=== PATIENT | female | born 1985 | race Two or more races ===

== ENCOUNTER 2025-08-21 18:38 | Emergency (ER) | payer BC, OTHER ==
[~2025-08-21] VITALS: Ht 167.6 cm; Wt 84.6 kg
[2025-08-21 19:42] LABS: Hematocrit 41.4 % (36.0-46.0); Hemoglobin 14.1 g/dL (12.2-16.2); Mean Corpuscular Hemoglobin 29.8 pg (28.0-32.0); Mean Corpuscular Volume 87.6 fL (80.0-100.0); Nucleated Red Blood Cells % 0.0 %
[2025-08-21] MEDS: SODIUM CHLORIDE 0.9% 1,000 ML IV ONE (20:00)
[2025-08-21 20:01] LABS: Alanine Aminotransferase 15 U/L (7-40); Albumin 4.7 g/dL (3.2-4.8); Alkaline Phosphatase 80 U/L (46-116); Anion Gap 13 (5-15); BUN/Creatinine Ratio 11.9 (10.0-20.0); Bilirubin, Total 0.5 mg/dL (0.2-1.0); Calcium 9.4 mg/dL (8.7-10.4); Carbon Dioxide 20 mmol/L (20-31); Chloride 107 mmol/L (98-107); Lipase 31 U/L (12-53); Sodium 140 mmol/L (136-145); Total Protein 7.9 g/dL (5.7-8.2)
[2025-08-21 20:02] LABS: Blood Urea Nitrogen 8 mg/dL (9-23); Glucose 119 mg/dL (74-106); Potassium 3.2 mmol/L (3.5-5.1)
--- NOTE | 2025-08-21 20:14 | ED.PDOC ---
History of Present Illness HPI Comments 40-year-old, obese female presents with chief complaint of nonradiating lower abdominal pain, left greater than right. Patient reports pain started out as mild soreness following initial, unprovoked and atraumatic onset on 08/19/2025. Today, while at work, pain was stated to have, suddenly, gotten worse. She endorses on having associated nausea, vomiting, fever, and tremors and was referred to ED after being evaluated at [facility] urgent care facility, earlier, this evening. Patient was given Zofran, Toradol, and Solu- Medrol at said facility prior to arrival. Pertinent history of chronic gastrointestinal issues, current hiatal hernia, and hypertension and family history of endometriosis and ruptured ovarian cysts. Patient also mentions on doubling her hypertension medication dosage under advise following previous, separate urgent care visit for flu-like symptoms in May 2025. She denies any bloody or bilious vomitus, diarrhea, urinary problems, or further acute symptoms. Chief Complaint: Abdominal Pain Time Seen by MD: 19:25 Reviewed Notes: Nurses Notes, Medications, Allergies Allergies: Coded Allergies: Sulfa Antibiotics (Verified Allergy, Unknown, 08/21/25) Information Source: Patient Mode of Arrival: Ambulatory Severity: Moderate Timing: Days Duration: Since onset Prehospital treatment: Other (see HPI) Past Medical History PAST MEDICAL HISTORY: HTN Past Medical History (Other): hernia chronic gastrointestinal issues Surgical History: Denies all surgeries MARKETING SUPPORT ASSISTANT History: Denies all MARKETING SUPPORT ASSISTANT Hx Family History Family History (Other): endometriosis ruptured ovarian cysts Social History Smoker: Non-Smoker Alcohol: Denies ETOH Use Drugs: Denies Drug Use Lives In: Home All Other Systems: Reviewed and Negative (Comprehensive review of systems are negative unless otherwise stated in HPI) Physical Exam General Appearance: No Apparent Distress, Obese HEENT: Normal ENT Inspection, Pharynx Normal, TMs Normal Neck: Full Range of Motion, Non-Tender, Normal, Normal Inspection Respiratory: Chest Non-Tender, Lungs Clear, No Accessory Muscle Use, No Respiratory Distress, Normal Breath Sounds Cardiovascular: No Edema, No JVD, No Murmur, No Gallop, Normal Peripheral Pulses, Regular Rate/Rhythm Breast Exam: Deferred Gastrointestinal: Diffuse (Diffuse tenderness to lower abdomen), LLQ (Tenderness), No Organomegaly, No Pulsatile Mass, Normal Bowel Sounds, RLQ (Tenderness), Soft, Suprapubic (Tenderness), Tenderness (Diffuse tenderness to lower abdomen) Genitalia: Deferred Pelvic: Deferred Rectal: Deferred Extremities: No calf tenderness, Normal capillary refill, Normal inspection, Normal range of motion, Non-tender, No pedal edema Musculoskeletal : Apperance: Normal Neurologic: Alert, access manager II-XII nml as Tested, No Motor Deficits, Normal Affect, Normal Mood, No Sensory Deficits Cerebellar Function: Normal Reflexes: Normal Skin: Dry, Normal Color, Warm Lymphatic: No Adenopathy Was a procedure done? Was a procedure done?: No Differential Dx Considerations may include: Ovarian cyst, ovarian torsion, appendicitis, PID, UTI, gastritis, kidney stone, colitis, diverticulitis, among others X-Ray, Labs, Meds, VS Vital Signs Date Time Temp Pulse Resp B/P (MAP) Pulse Ox O2 Delivery O2 Flow Rate FiO2 08/21/25 21:14 134/94 (107) 08/21/25 19:47 98.9 112 20 177/112 (133) 95 98.9 08/21/25 18:44 98.9 115 18 164/118 95 98.9 Lab Test 08/21/25 20:18 08/21/25 19:29 Range/Units Troponin I High Sensitivity < 3 L < 3 L </=34 ng/L White Blood Count 18.2 H 4.4-10.8 10^3/uL Red Blood Count 4.73 4.0-5.20 10^6/uL Hemoglobin 14.1 12.2-16.2 g/dL Hematocrit 41.4 36.0-46.0 % Mean Corpuscular Volume 87.6 80.0-100.0 fL Mean Corpuscular Hemoglobin 29.8 28.0-32.0 pg Mean Corpuscular Hemoglobin Concent 34.0 32.0-36.0 g/dL Red Cell Distribution Width 14.0 11.8-14.3 % Platelet Count 293 140-450 10^3/uL Mean Platelet Volume 7.7 6.9-10.8 fL Neutrophils (%) (Auto) 96.7 H 37.0-80.0 % Lymphocytes (%) (Auto) 1.7 L 10.0-50.0 % Monocytes (%) (Auto) 1.6 0.0-12.0 % Eosinophils (%) (Auto) 0.0 0.0-7.0 % Basophils (%) (Auto) 0.0 0.0-2.0 % Neutrophils # (Auto) 17.6 H 1.6-8.6 10 ^3/uL Lymphocytes # (Auto) 0.3 L 0.4-5.4 10 ^3/uL Monocytes # (Auto) 0.3 0-1.3 10 ^3/uL Eosinophils # (Auto) 0 0-0.8 10 ^3/uL Basophils # (Auto) 0 0-0.2 10 ^3/uL Nucleated Red Blood Cells 0.0 % Sodium Level 140 136-145 mmol/L Potassium Level 3.2 L 3.5-5.1 mmol/L Chloride Level 107 98-107 mmol/L Carbon Dioxide Level 20 20-31 mmol/L Anion Gap 13 5-15 Blood Urea Nitrogen 8 L 9-23 mg/dL Creatinine 0.67 0.550-1.02 mg/dL Glomerular Filtration Rate Calc 113 >90 mL/min BUN/Creatinine Ratio 11.9 10.0-20.0 Serum Glucose 119 H 74-106 mg/dL Calcium Level 9.4 8.7-10.4 mg/dL Total Bilirubin 0.5 0.2-1.0 mg/dL Aspartate Amino Transferase (AST) 17 13-40 U/L Alanine Aminotransferase (ALT) 15 7-40 U/L Alkaline Phosphatase 80 46-116 U/L B-Type Natriuretic Peptide 43.55 0-100 pg/mL Total Protein 7.9 5.7-8.2 g/dL Albumin 4.7 3.2-4.8 g/dL Lipase 31 12-53 U/L Current Medications Medications (Trade) Dose Ordered Sig/Elena Route Start Time Stop Time Status Last Admin Sodium Chloride 1,000 ml @ 1,000 mls/hr Q1H ONCE IV 08/21/25 19:15 08/21/25 20:14 DC 08/21/25 20:00 X-Ray, Labs, Meds, VS Comment Patient presenting with lower abdominal pain, acute on chronic, associated with nausea and chills. Went to urgent care and was referred here for CT abdomen pelvis. Lab work (CBC, BMP) to evaluate for evidence of severe anemia, electrolyte abnormality including hypokalemia, hyperkalemia, hypernatremia, hyponatremia, hy perglycemia, hypoglycemia, etc. CT abdomen and pelvis to evaluate for acute appendicitis, colitis, diverticulitis, kidney stone, etc. Pelvic ultrasound to evaluate for ovarian mass, torsion, hemorrhage consists, ectopic, etc. Re-evaluate Social determinant surveillance affecting care: Social determinants of health that will affect the patient's care: Poor health literacy (additional time provided an explanation) Poor access to outpatient care/followup (provided outpatient resources) Time of 1ST Reevaluation: 20:05 Reevaluation 1ST: Unchanged Patient Education/Counseling: Diagnosis, Treatment, Need For Follow Up Family Education/Counseling: No Family Present SEPSIS Sepsis Screen Date sepsis recognized/suspect: Aug 21, 2025 Time Sepsis recognized/suspect: 1843 Recent Procedure: No On Antibiotic Therapy: Yes Respiratory Rate >20: No Heart Rate >90: Yes Temp<36 C (96.8 F) or >38.3 C: No SBP <90 or MAP <65 mmHG: No New Acute Mental Status Change: No Is the patient on CPAP, BIPAP,: No Physician Orders Urine (08/21/25 ) Urinalysis (08/21/25 19:01) Troponin-I Hs (08/21/25 22:01) Ct Ab Pel With Iv Con Only (08/21/25 19:25) Pelvic (08/21/25 19:25) Blood Culture (08/21/25 21:12) Lactic Acid W/ Reflex Order (08/21/25 21:12) Vital Signs Date Time Temp Pulse Resp B/P (MAP) Pulse Ox O2 Delivery O2 Flow Rate FiO2 08/21/25 21:14 134/94 (107) 08/21/25 19:47 98.9 112 20 177/112 (133) 95 98.9 08/21/25 18:44 98.9 115 18 164/118 95 98.9 Laboratory Tests Test 08/21/25 19:29 White Blood Count 18.2 10^3/uL (4.4-10.8) H Medications Medications Dose Ordered Sig/Elena Route Start Time Stop Time Status Last Admin Dose Admin Sodium Chloride 1,000 ml @ 1,000 mls/hr Q1H ONCE IV 08/21/25 19:15 08/21/25 20:14 DC 08/21/25 20:00 Departure 1 Departure Time of Disposition: 21:40 (On reassessment, patient found to have small possible kidney stone at the left UVJ with no hydronephrosis. Found to have mild leukocytosis, rule labs otherwise unremarkable. Repeat abdominal exam soft, nontender, nondistended. Patient tolerating p.o.. Will discharge with outpatient urology follow up. Given strict return precaution may be follow up.) Impression: Primary Impression: Acute bilateral lower abdominal pain Additional Impressions: Kidney stone Acute nausea with nonbilious vomiting Leukocytosis Disposition: HOME / SELF CARE / HOMELESS Condition: Stable Additional Instructions: You have a kidney stone today. Follow up with your PMD and Urology for further evaluation of this. e-Prescriptions Tamsulosin Hcl (Flomax) 0.4 Mg Cap 1 CAP PO DAILY, #14 CAP 11 Refills Prov: SHAHBAZ LINARES MD 08/21/25 Discharged With: Self Critical Care Note Critical Care Time?: No Stability Stability form required: No Heart Score Heart Score: Heart Score Response (Comments) Value History N/A 0 EKG N/A 0 Age N/A 0 Risk Factors N/A 0 Troponin N/A 0 Total 0 I personally scribed for SHAHBAZ LINARES MD ([email or web address]) on 08/21/25 at 20:14. Electronically submitted by Vinicius Gaines ([email or web address]). SHAHBAZ LINARES MD Aug 21, 2025 20:14
[2025-08-21] MEDS: IOHEXOL 300 MG/ML 100ML BOTTLE IJ ONE (20:37)
--- NOTE | 2025-08-21 21:18 | DVH ---
EXAM: CT CT AB PEL WITH IV CON ONLY HISTORY: lower abd pain TECHNIQUE: Volumetric multidetector CT images of the abdomen and pelvis were obtained after the administration of intravenous contrast. All CT scans at this facility use dose modulation, iterative reconstruction, and/or weight based dosing when appropriate to reduce radiation dose to as low as reasonably achievable. COMPARISON: None FINDINGS: [LOWER CHEST]: Partially visualized breast implants. The partially visualized lung bases are clear without a pleural effusion. [LIVER]: Normal hepatic size without suspicious focal lesion. [GALLBLADDER AND BILIARY TREE]: No cholelithiasis. [SPLEEN]: Unremarkable. [PANCREAS]: Unremarkable. [ADRENAL GLANDS]: Unremarkable. [KIDNEYS]: Possible trace 1 mm left ureterovesicular junction stone versus phleboliths; correlate with clinical exam. No hydronephrosis. No suspicious focal lesion. [BLADDER]: Unremarkable for the degree distention. [REPRODUCTIVE ORGANS]: Benign-appearing bilateral adnexal/ovarian cysts. [BOWEL/MESENTERY]: Gastric rugal prominence of the stomach; correlate for acute insertional chronic gastritis. Normal appendix. Small fat containing left inguinal hernia. Mild stool burden. Minimal descending colonic diverticulosis. No CT evidence of bowel obstruction. [ASCITES]: Absent [LYMPHADENOPATHY]: No pathologically enlarged lymph nodes by CT size criteria [VASCULATURE]: No aneurysmal dilatation. [ABDOMINAL WALL]: Unremarkable. [MUSCULOSKELETAL]: No acute fracture or aggressive focal osseous lesion. Multifocal degenerative change of the visualized spine. IMPRESSION: 1. Gastric rugal prominence of the stomach; correlate for acute insertional chronic gastritis. 2. Possible trace 1 mm left ureterovesicular junction stone versus phleboliths; correlate with clinical exam. 3. No hydronephrosis.
--- NOTE | 2025-08-21 21:26 | DVH ---
Procedure: US PELVIC 08/21/2025 08:44 PM Indication: lower abd pain Comparison: None Technique: Real-time grayscale and color images were obtained transabdominal. FINDINGS: UTERUS: Anteverted, measuring 9.9 x 4.5 x 5.4 cm in length. Homogeneous myometrium without a discrete lesion. ENDOMETRIAL STRIPE: 6 mm in thickness. Homogenous echotexture. No fluid in the endometrial canal. RIGHT OVARY: 2.9 x 3.1 x 2.1 cm in length. Preserved vascular flow. No suspicious lesions identified. LEFT OVARY: 2.5 x 3.1 x 1.9 cm in length. 7.5 mL in volume. Preserved vascular flow. No suspicious lesions identified. CUL-DE-SAC: No significant fluid noted. OTHER: None. IMPRESSION: 1. No acute sonographic abnormality.
[2025-08-21] MEDS ORDERED: TAMS-35 PO (21:41)
[2025-08-21 21:56] VITALS: BP 163/112; PULSE 109; RESP 18; TEMP 98; O2SAT 98
[2025-08-21 22:03] LABS: Urine Protein, UAD Negative (Negative)
== END 2025-08-21 22:13 | disposition home or self-care (01) ==
LOC: ER 18:38
DX: N20.0 Calculus of kidney (principal); D72.829 Elevated white blood cell count, unspecified; R10.30 Lower abdominal pain, unspecified; R11.2 Nausea with vomiting, unspecified; I10 Essential (primary) hypertension; Z88.2 Allergy status to sulfonamides
CPT/HCPCS: 36415; 74177; 76856; 80053; 81001; 83605; 83690; 83880; 84484; 85025; 87040; 96360; 99285; J7030; Q9967